=== PATIENT | female | born 1925 | race Caucasian/White ===

== ENCOUNTER 2016-07-03 16:47 | Inpatient (IN) | payer MEDICARE, OTHER ==
[2016-07-03 17:45] LABS: Hematocrit 39 % (35-47); Mean Corpuscular HGB Conc 33 g/dl (31-36); Mean Corpuscular Hemoglobin 31 pg (27-31); Mean Corpuscular Volume 93 fL (80-97); Mean Platelet Volume 8 um3 (7.4-10.4); Red Blood Count 4.26 10^6/ul (4.0-5.4); Red Cell Distribution Width 15 % (10.5-15); White Blood Count 6.7 10^3/ul (3.5-10.8)
[2016-07-03 17:55] LABS: Troponin I 0.01 ng/mL (<0.04)
[2016-07-03 17:56] LABS: Albumin 3.7 g/dL (3.2-5.2); BUN/Creatinine Ratio 40.4 (8-20); Calcium 9.3 mg/dL (8.6-10.3); EGFR African American 128.4 (>60); EGFR Non-African American 99.9 (>60); Globulin 2.6 g/dL (2-4); Potassium 4.2 mmol/L (3.5-5.0); Total Bilirubin 0.6 mg/dL (0.2-1.0); Total Protein 6.3 g/dL (6.4-8.9)
--- NOTE | 2016-07-03 18:38 | RAD ---
INDICATION: Difficulty breathing COMPARISON: Similar chest x-ray dated April 17, 2015 TECHNIQUE: Single AP portable view of the chest was obtained. FINDINGS: Image quality is compromised due to the relative inferiority of a portable chest x-ray. Similar the previous chest x-ray there is mild cardiomegaly. There is faint atherosclerotic calcification at the arch of the aorta. The lungs are grossly clear. There is no evidence of a large pleural effusion. The patient appears to have undergone at least 2 levels of vertebroplasty at the lower thoracic spine. IMPRESSION: No radiographic evidence for acute cardiopulmonary abnormality on this portable chest x-ray.
[2016-07-03 19:16] LABS: Urine Bacteria 1+ (Absent); Urine Bilirubin Negative (Negative); Urine Glucose Negative (Negative); Urine Nitrite Negative (Negative)
[2016-07-03] MEDS ORDERED: cefTRIAXone(*) 1 GM in NS 0.9% 50 ML* 50 ML IVPB ONE (19:23)
[2016-07-03] MEDS ORDERED: GuaiFENesin DM* 5 ML UDC PO PRN (20:16)
[2016-07-03] MEDS ORDERED: Albuterol 2.5 MG/3 ML NEB.SOL* (0.083%) INH PRN (20:19)
[2016-07-03] MEDS ORDERED: Acetaminophen TAB* 325 MG PO PRN (20:19)
[2016-07-03] MEDS ORDERED: Ondansetron INJ* 2 MG/ML VIAL IV PRN (20:21)
--- NOTE | 2016-07-03 20:35 | HP ---
H&P (Free Text) History and Physical: PCP: Freda Morrell MD Date/Time of Evaluation: 07/03/20162004 CC: lethargy, cough HPI: Mrs Anderson is an 89YO female HX advanced dementia who live at home with 24h care. She is brought in by her daughter for wet cough of 1week duration associated with increasing lethargy. PO intake has been decreased. There is no report of F/C, N/V/D, chest/abdominal pain, headache, focal W/N/T, change in bowel/bladder, or other issues. Evaluation is notable for a UTI. Discussion with the family regarding returning home on oral ABX vs 24h observation with gentle IVFs was had. They felt more comfortable with observation. PMedHx AFIB COPD lymphoma hypothyroidism polymyalgia rheumatica advanced dementia osteoporosis OA Ambulatory Orders fentaNYL PATCH 75 MCG/HR* [Duragesic PATCH 75 Mcg/Hr*] 75 mcg TRANSDERM Q72H Dextromethorphan-Guaifenesin [Tussin Dm] 10 ml PO Q4HR PRN 07/03/16 LORazepam TAB(*) [Ativan 0.5 MG TAB (*)] 0.5 mg PO BID 07/03/16 LoraTADine TAB(NF) [Claritin 10 MG TAB(NF)] 10 mg PO DAILY 07/03/16 Morphine Sulfate 100mg/5ml 0.5 ml PO Q2HR PRN 07/03/16 Sennosides-Docusate Sodium [Senna-S 8.6-50 mg] 1 tab PO QAM 07/03/16 Sotalol TAB* [Betapace 80 MG TAB*] 60 mg PO BID 07/03/16 Allergies Penicillins Allergy (Unknown, Verified 12/04/13 10:41) Hives PSurgHx cholecystectomy vertebroplasty appendectomy B tubal ligation SocHx: former smoker, no alcohol or recreational drugs; lives with 24h home health aide care; DNR/I code status FamHx: Mother: gastric CA; Father: COPD ROS: as above, otherwise reviewed and all were negative Constitutional: NAD, normally developed, obese elderly white female vitals: Vital Signs Temp 36.6 C 07/03/16 16:54 Pulse 60 07/03/16 18:59 Resp 12 07/03/16 16:54 BP 109/50 07/03/16 18:30 Pulse Ox 98 07/03/16 18:59 Intake & Output 07/02/16 07/03/16 07/03/16 23:59 11:59 23:59 Weight 81.647 kg HEENM: atraumatic; sclera/conjunctiva: non-icteric/clear; hearing: clinically mildly decreased; oropharynx: clear, mucosa tacky Neck: soft tissue: no nuchal rigidity; thyroid: normal Pulmonary: scant B end-expiratory wheeze, fair aeration with poor inspiratory effort, no accessory muscle use CV: RR/RR, normal S1S2, no carotid bruit, no jugular venous distention, 2+ B DP/ PT, no edema Abdominal: soft, non-distended, non-tender, no rebound/guarding/rigidity, normoactive bowel sounds, no hepatosplenomegaly or masses, no costovertebral angle tenderness Musculoskeletal: general: grossly intact; gait: too weak to ambulate Integumental: normal appearance and texture of exposed skin Psychiatric orientation: AA&disoriented affect: calm mood: belligerent eye contact: poor content: unreliable memory: markedly limited responses: slowed, often ignores, when asked how she feels replies, "fine until you came in" insight: poor to absent Testing: Lab Results 07/03/16 07/03/16 07/03/16 Range/Units 17:20 17:28 17:28 WBC 6.7 (3.5-10.8) 10^3/ul RBC 4.26 (4.0-5.4) 10^6/ul Hgb 13.0 (12.0-16.0) g/dl Hct 39 (35-47) % MCV 93 (80-97) fL MCH 31 (27-31) pg MCHC 33 (31-36) g/dl RDW 15 (10.5-15) % Plt Count 136 L (150-450) 10^3/ul MPV 8 (7.4-10.4) um3 Neut % (Auto) 58.8 (38-83) % Lymph % (Auto) 26.0 (25-47) % Alexander % (Auto) 11.1 H (1-9) % Eos % (Auto) 3.4 (0-6) % Baso % (Auto) 0.7 (0-2) % Absolute Neuts (auto) 3.9 (1.5-7.7) 10^3/ul Absolute Lymphs (auto) 1.7 (1.0-4.8) 10^3/ul Absolute Monos (auto) 0.7 (0-0.8) 10^3/ul Absolute Eos (auto) 0.2 (0-0.6) 10^3/ul Absolute Basos (auto) 0 (0-0.2) 10^3/ul Absolute Nucleated RBC 0.01 10^3/ul Nucleated RBC % 0.1 Sodium 138 (133-145) mmol/L Potassium 4.2 (3.5-5.0) mmol/L Chloride 101 (101-111) mmol/L Carbon Dioxide 32 (22-32) mmol/L Anion Gap 5 (2-11) mmol/L BUN 23 (6-24) mg/dL Creatinine 0.57 (0.51-0.95) mg/dL Est GFR ( Amer) 128.4 (>60) Est GFR (Non-Af Amer) 99.9 (>60) BUN/Creatinine Ratio 40.4 H (8-20) Glucose 92 (70-100) mg/dL Lactic Acid (0.5-2.0) mmol/L Calcium 9.3 (8.6-10.3) mg/dL Total Bilirubin 0.60 (0.2-1.0) mg/dL AST 15 (13-39) U/L ALT 7 (7-52) U/L Alkaline Phosphatase 66 (34-104) U/L Troponin I 0.01 (<0.04) ng/mL Total Protein 6.3 L (6.4-8.9) g/dL Albumin 3.7 (3.2-5.2) g/dL Globulin 2.6 (2-4) g/dL Albumin/Globulin Ratio 1.4 (1-3) Urine Color [place] Urine Appearance Cloudy Urine pH 5.0 (5-9) Ur Specific [place] 1.023 (1.010-1.030) Urine Protein 1+(30 mg/dl) H (Negative) Urine Ketones Negative (Negative) Urine Blood 3+ H (Negative) Urine Nitrate Negative (Negative) Urine Bilirubin Negative (Negative) Urine Urobilinogen Negative (Negative) Ur Leukocyte Esterase 3+ H (Negative) Urine WBC (Auto) 3+(>20/hpf) H (Absent) Urine RBC (Auto) 3+(>10/hpf) H (Absent) Ur Squamous Epith Cells Present H (Absent) Calcium Oxalate Crystal Present H (Absent) Urine Bacteria 1+ H (Absent) Urine Glucose Negative (Negative) Urine Ascorbic Acid * H (Negative) 07/03/16 Range/Units 17:28 WBC (3.5-10.8) 10^3/ul RBC (4.0-5.4) 10^6/ul Hgb (12.0-16.0) g/dl Hct (35-47) % MCV (80-97) fL MCH (27-31) pg MCHC (31-36) g/dl RDW (10.5-15) % Plt Count (150-450) 10^3/ul MPV (7.4-10.4) um3 Neut % (Auto) (38-83) % Lymph % (Auto) (25-47) % Alexander % (Auto) (1-9) % Eos % (Auto) (0-6) % Baso % (Auto) (0-2) % Absolute Neuts (auto) (1.5-7.7) 10^3/ul Absolute Lymphs (auto) (1.0-4.8) 10^3/ul Absolute Monos (auto) (0-0.8) 10^3/ul Absolute Eos (auto) (0-0.6) 10^3/ul Absolute Basos (auto) (0-0.2) 10^3/ul Absolute Nucleated RBC 10^3/ul Nucleated RBC % Sodium (133-145) mmol/L Potassium (3.5-5.0) mmol/L Chloride (101-111) mmol/L Carbon Dioxide (22-32) mmol/L Anion Gap (2-11) mmol/L BUN (6-24) mg/dL Creatinine (0.51-0.95) mg/dL Est GFR ( Amer) (>60) Est GFR (Non-Af Amer) (>60) BUN/Creatinine Ratio (8-20) Glucose (70-100) mg/dL Lactic Acid 0.9 (0.5-2.0) mmol/L Calcium (8.6-10.3) mg/dL Total Bilirubin (0.2-1.0) mg/dL AST (13-39) U/L ALT (7-52) U/L Alkaline Phosphatase (34-104) U/L Troponin I (<0.04) ng/mL Total Protein (6.4-8.9) g/dL Albumin (3.2-5.2) g/dL Globulin (2-4) g/dL Albumin/Globulin Ratio (1-3) Urine Color Urine Appearance Urine pH (5-9) Ur Specific [place] (1.010-1.030) Urine Protein (Negative) Urine Ketones (Negative) Urine Blood (Negative) Urine Nitrate (Negative) Urine Bilirubin (Negative) Urine Urobilinogen (Negative) Ur Leukocyte Esterase (Negative) Urine WBC (Auto) (Absent) Urine RBC (Auto) (Absent) Ur Squamous Epith Cells (Absent) Calcium Oxalate Crystal (Absent) Urine Bacteria (Absent) Urine Glucose (Negative) Urine Ascorbic Acid (Negative) ECG, personally reviewed: NSR rate 64, no ischemia CXR, personally reviewed: IMPRESSION: No radiographic evidence for acute cardiopulmonary abnormality on this portable chest x-ray. Impression: 89F HX advanced dementia & COPD presents with lethargy and UTI w/ wet cough & CXR negative for pneumonia DIAGNOSIS & PLAN Primary UTI w/ 2nd lethargy : IV ceftriaxone given in ED : start PO sulfamethoxazole/trimethoprim DS BID : gentle IVFs : recheck CBC & CXR in AM : hold lorazepam and morphine while lethargic : continue fentanyl patch for pain : supportive care COPD, in mild exacerbation : albuterol nebs : mometasone/formoterol : tiotropium : PO prednisone : supplemental oxygen Secondary AFIB : currently sinus rhythm lymphoma : no evidence of disease hypothyroidism : not currently on medication : check TSH polymyalgia rheumatica : no acute issues advanced dementia : no acute issues Admission Rational: observation for initiation of ABX for UTI in an advanced elderly patient at risk of sudden terminal decompensation DVTp: heparin SQ & SCDs Code Status: DNR/I, MOLST filled out HCP: Wilver hodge & Jackie regalado
[2016-07-03] MEDS: NS 0.9% 1000 ML* 1,000 ML IV SCH (20:47)
[2016-07-03] MEDS ORDERED: Ciprofloxacin TAB* 500 MG PO SCH (21:00)
[2016-07-03] MEDS ORDERED: fentaNYL PATCH 75 MCG/HR* 75 MCG TRANSDERM SCH (21:00)
[2016-07-03] MEDS: Sotalol TAB* 80 MG PO SCH (23:47)
[2016-07-03] MEDS: Sulfamethox/Trimethoprim DS 800/160* TAB PO SCH (23:47)
[2016-07-03] MEDS: guaiFENesin ER TAB 600 MG PO SCH (23:47)
[2016-07-04] MEDS: Heparin VIAL(*) 5000 UNITS/ML VIAL (FIVE THOUSAND) SUBCUT SCH ×3 (06:06→22:24)
[2016-07-04] MEDS: Omeprazole CAP* 20 MG PO SCH (06:06)
[2016-07-04] MEDS: predniSONE TAB* 20 MG PO SCH ×2 (06:11→08:26)
[2016-07-04 06:57] LABS: Hematocrit 37 % (35-47); Mean Corpuscular HGB Conc 33 g/dl (31-36); Mean Corpuscular Hemoglobin 31 pg (27-31); Mean Corpuscular Volume 93 fL (80-97); Mean Platelet Volume 8 um3 (7.4-10.4); Red Blood Count 3.92 10^6/ul (4.0-5.4); Red Cell Distribution Width 14 % (10.5-15); White Blood Count 5.8 10^3/ul (3.5-10.8)
[2016-07-04] MEDS: fentaNYL Patch Check Q Shift 1 NOTE SCH ×2 (06:59→19:03)
[2016-07-04 07:49] LABS: TSH (Thyroid Stimulating Horm) 10.85 mcIU/mL (0.34-5.60)
--- NOTE | 2016-07-04 07:52 | PN ---
Subjective Date of Service: 07/04/16 Interval History: Patient seen and examined at bedside. She awakes to verbal stimuli. She is alert , knows she is in a hospital. She states, "I don't know why I'm here." When asked about her symptoms, she states she has had a cough "off and on for a couple of weeks." Denies SOB or chest pain, fever/chills, abd pain, n/v. States her right hip hurts from the bed. Patient able to communicate she needs to use the commode. Was able to push herself up on the edge of the bed and pivot with 1 assist to commode. Able to make needs known. Family History: Unchanged from Admission Social History: Unchanged from Admission Past Medical History: Unchanged from Admission Objective Active Medications: Acetaminophen (Tylenol Tab*) 650 mg PO Q6H PRN PRN Reason: FEVER/PAIN Albuterol (Ventolin 2.5 Mg/3 Ml Neb.Mahnaz*) 2.5 mg INH Q2H PRN PRN Reason: SOB/WHEEZING Cetirizine HCl (Zyrtec*) 10 mg PO QPM [facility] Device (Tiotropium Inhaler Device*) 0 each .SEE ORDER ONCE ONE Stop: 07/04/16 09:01 Docusate Sodium (Colace Cap*) 100 mg PO QAM [facility] Fentanyl (Duragesic Patch 75 Mcg/Hr*) 75 mcg TRANSDERM Q72H [facility] Guaifenesin (Mucinex*) 1,200 mg PO BID [facility] Last Admin: 07/03/16 23:47 Dose: 1,200 mg Heparin Sodium (Porcine) (Heparin Vial(*)) 5,000 units SUBCUT Q8HR [facility] Last Admin: 07/04/16 06:06 Dose: 5,000 units Sodium Chloride (Ns 0.9% 1000 Ml*) 1,000 mls @ 75 mls/hr IV PER RATE [facility] Last Admin: 07/03/16 20:47 Dose: 75 mls/hr Mometasone Furoate/Formoterol Fumar (Dulera 200/5 Mdi*) 2 puff INH BID [facility] Omeprazole (Prilosec Cap*) 20 mg PO DAILY@0600 [facility] Last Admin: 07/04/16 06:06 Dose: 20 mg Ondansetron HCl (Zofran Inj*) 4 mg IV Q6H PRN PRN Reason: NAUSEA Pharmacy Profile Note (Fentanyl Patch Check Q Shift) 1 note N/A 0700,1900 [facility] Last Admin: 07/04/16 06:59 Dose: 1 note Prednisone (Deltasone Tab*) 40 mg PO DAILY [facility] Stop: 07/05/16 09:01 Last Admin: 07/04/16 06:11 Dose: 40 mg Senna (Senokot Tab*) 1 tab PO QAM [facility] Sotalol HCl (Betapace Tab*) 60 mg PO BID [facility] Last Admin: 07/03/16 23:47 Dose: 60 mg Tiotropium [place] (Spiriva Cap.Inh*) 1 cap INH DAILY [facility] Trimethoprim/Sulfamethoxazole (Bactrim Ds 800/160 Tab*) 1 tab PO BID [facility] Last Admin: 07/03/16 23:47 Dose: 1 tab Vital Signs 07/03/16 07/03/16 07/03/16 20:30 20:55 21:00 Temperature 97.5 F Pulse Rate 59 60 58 Respiratory 16 Rate Blood Pressure 120/52 104/47 104/47 (mmHg) O2 Sat by Pulse 98 97 97 Oximetry 07/03/16 07/03/16 07/03/16 21:47 21:52 23:58 Temperature 98.0 F 98.0 F 97.6 F Pulse Rate 65 65 71 Respiratory 18 18 20 Rate Blood Pressure 154/54 154/54 130/59 (mmHg) O2 Sat by Pulse 97 97 98 Oximetry 07/04/16 03:37 Temperature 98.0 F Pulse Rate 56 Respiratory 20 Rate Blood Pressure 122/47 (mmHg) O2 Sat by Pulse 98 Oximetry Oxygen Devices in Use Now: Nasal Cannula - 3Lnc Appearance: Elderly female, lying in bed, NAD Eyes: PERRLA Ears/Nose/Mouth/Throat: Mucous Membranes Moist Neck: NL Appearance and Movements; NL JVP Respiratory: Symmetrical Chest Expansion and Respiratory Effort, - - fair aeration, prolonged expiratory phase, exp wheezing, scattered rhonchi Cardiovascular: NL Sounds; No Murmurs; No JVD, RRR Abdominal: NL Sounds; No Tenderness; No Distention Extremities: No Edema Neurological: - - Alert, oriented to self and place Lines/Tubes/Other Access: Clean, Dry and Intact Peripheral IV Nutrition: Taking PO's Result Diagrams: 07/04/16 06:29 07/03/16 17:28 Assess/Plan/Problems-Billing Assessment: Ms. Anderson is an 89 yo female with a PMH of afib, COPD, lymphoma, hypothyroidism, PMR, advanced dementia, and OA who presented on 07/03/16 with concern for lethargy and cough; patient found to have UTI and concern for mild COPD exacerbation. - Patient Problems (1) UTI (urinary tract infection) Comment: With accompanying lethargy at home. No leukocytosis or fever. Received ceftriaxone in ED, started on Bactrim DS last evening. Continue IVF and supportive care. Home morphine and lorazepam on hold for lethargy, Fentanyl patch in place. (2) COPD (chronic obstructive pulmonary disease) Code(s): J44.9 - CHRONIC OBSTRUCTIVE PULMONARY DISEASE, UNSPECIFIED Comment: Presented with cough, lethargy. Suspect mild exacerbation. Continue prednisone, Dulera, Spiriva, albuterol nebs Supplemental O2 (3) Afib Code(s): I48.91 - UNSPECIFIED ATRIAL FIBRILLATION Comment: Currently in SR Continue sotalol. (4) Dementia Code(s): F03.90 - UNSPECIFIED DEMENTIA WITHOUT BEHAVIORAL DISTURBANCE Comment : Continue supportive care. (5) Hypothyroid Code(s): E03.9 - HYPOTHYROIDISM, UNSPECIFIED Comment: Continue levothyroxine. 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 Receiving 5 day course here for COPD exacerbation. Continue to monitor. (8) DVT prophylaxis Comment: SQ heparin SCDs Status and Disposition: OBV admit. Plan for d/c to home when medically stable.
[2016-07-04] MEDS: Mometasone/Formoter 200/5 MDI INH SCH ×2 (07:59→19:01)
[2016-07-04] MEDS: Tiotropium CAP.INH* CAP.INH/18 MCG INH SCH (07:59)
--- NOTE | 2016-07-04 08:06 | RAD ---
HISTORY: Cough, hypoxia COMPARISONS: July 03, 2016 at 5:15 PM VIEWS:1: Single frontal portable view of the chest at 7:08 AM FINDINGS: LINES AND TUBES: None. CARDIOMEDIASTINAL SILHOUETTE: The cardiomediastinal silhouette is stable. PLEURA: The costophrenic angles are sharp. No pleural abnormalities are noted. LUNG PARENCHYMA: There is hyperinflation. ABDOMEN: The upper abdomen is clear. There is no subphrenic gas. BONES AND SOFT TISSUES: There is remote posttraumatic deformity to the left hemithorax. The patient appears to be status post percutaneous vertebral augmentation of the midthoracic spine. IMPRESSION: HYPERINFLATION. NO ACTIVE CARDIOPULMONARY DISEASE.
[2016-07-04] MEDS ORDERED: Albuterol 2.5 MG/3 ML NEB.SOL* (0.083%) INH ONE (08:25)
[2016-07-04] MEDS: guaiFENesin ER TAB 600 MG PO SCH ×2 (08:26→22:25)
[2016-07-04] MEDS: Sulfamethox/Trimethoprim DS 800/160* TAB PO SCH ×2 (08:26→22:25)
[2016-07-04] MEDS: Senna TAB PO SCH (08:26)
[2016-07-04] MEDS: Docusate CAP* 100 MG PO SCH (08:27)
[2016-07-04] MEDS: NS 0.9% 1000 ML* 1,000 ML IV SCH ×2 (08:28→22:23)
[2016-07-04 08:46] LABS: Free T3 2.3 pg/mL (2.5-3.9)
[2016-07-04] MEDS: Sotalol TAB* 80 MG PO SCH ×2 (08:46→22:24)
[2016-07-04 08:47] LABS: Free T4 0.59 ng/dL (0.61-1.12)
[2016-07-04] MEDS ORDERED: Spiriva Inhaler DEVICE* 1 EACH DEVICE ONE (09:00)
[2016-07-04] MEDS ORDERED: Senna/Docusate (NF) TAB PO SCH (09:00)
[2016-07-04] MEDS ORDERED: Morphine ORAL.SOLN 10 mg* 2 MG/ML UDC 5 ml PO PRN (12:11)
[2016-07-04] MEDS ORDERED: LORazepam TAB(*) 0.5 MG PO PRN (12:14)
[2016-07-04] MEDS ORDERED: Levothyroxine TAB* 25 MCG TAB PO ONE (13:08)
[2016-07-04] MEDS: Albuterol 2.5 MG/3 ML NEB.SOL* (0.083%) INH SCH ×3 (14:49→23:56)
[2016-07-04] MEDS ORDERED: Cetirizine* 10 MG TAB PO SCH (18:00)
[2016-07-05] MEDS: Albuterol 2.5 MG/3 ML NEB.SOL* (0.083%) INH SCH ×2 (03:56→07:54)
[2016-07-05] MEDS: Omeprazole CAP* 20 MG PO SCH (05:08)
[2016-07-05] MEDS: Heparin VIAL(*) 5000 UNITS/ML VIAL (FIVE THOUSAND) SUBCUT SCH (05:08)
[2016-07-05] MEDS ORDERED: Levothyroxine TAB* 25 MCG TAB PO SCH (06:00)
[2016-07-05] MEDS: fentaNYL Patch Check Q Shift 1 NOTE SCH (06:48)
[2016-07-05] MEDS: Mometasone/Formoter 200/5 MDI INH SCH (07:55)
[2016-07-05] MEDS: Tiotropium CAP.INH* CAP.INH/18 MCG INH SCH (07:55)
[2016-07-05 08:20] VITALS: BP 116/76
[2016-07-05] MEDS: Sotalol TAB* 80 MG PO SCH (08:26)
[2016-07-05] MEDS: guaiFENesin ER TAB 600 MG PO SCH (08:27)
[2016-07-05] MEDS: predniSONE TAB* 20 MG PO SCH (08:27)
[2016-07-05] MEDS: Docusate CAP* 100 MG PO SCH (08:28)
[2016-07-05] MEDS: Sulfamethox/Trimethoprim DS 800/160* TAB PO SCH (08:28)
[2016-07-05] MEDS: Senna TAB PO SCH (08:28)
[2016-07-05] MEDS ORDERED: Albuterol/Ipratropium NEB.SOL* Albuterol 2.5 MG/Ipratropium 0.5 MG 3 ML INH SCH (13:00)
--- NOTE | 2016-07-06 02:07 | DS ---
DISCHARGE SUMMARY: DATE OF ADMISSION: 07/04/16 DATE OF DISCHARGE: 07/05/16 PRIMARY CARE PHYSICIAN: Ever Morrell MD DISCHARGE DIAGNOSES: 1. Chronic obstructive pulmonary disease exacerbation. 2. Urinary tract infection. 3. Lethargy and increased confusion, most likely due to dehydration. SECONDARY DIAGNOSES: 1. History of chronic atrial fibrillation. 2. History of chronic obstructive pulmonary disease. 3. Lymphoma. 4. Hypothyroidism. 5. Polymyalgia rheumatica. 6. History of dementia. 7. Osteoporosis. 8. Osteoarthritis. MEDICATIONS AT DISCHARGE: Include: 1. Robitussin 10 mL every 4 hours on a p.r.n. basis. 2. Morphine sulfate 0.5 mL every 2 hours p.r.n. 3. Ativan 0.5 mg b.i.d. p.r.n. 4. Levothyroxine 25 mcg daily. 5. Claritin 10 mg daily. 6. Dulera 200/5 mcg 2 puffs inhalation b.i.d. 7. Prednisone 40 mg daily for a total of 4 days. 8. Senna 1 tablet daily. 9. Sotalol 60 mg b.i.d. 10. Bactrim 1 tablet p.o. b.i.d. for a total of 5 days. 11. Spiriva 1 inhalation daily. 12. Fentanyl patch 75 mcg transdermally every 74 hours. 13. Mucinex ER 1200 mg b.i.d. for 7 days. DIAGNOSTIC STUDIES/LAB DATA: Laboratory studies performed during the hospital stay include: On 07/04/16: White blood cell count of 5.8, hemoglobin of 12.0, hematocrit of 37, and platelets of 111. The patient's TSH was noted to be 10.8, free T4 0.5, and free T3 2.3. Portable chest x-ray obtained on admission, impression: "No radiographic evidence for acute cardiopulmonary abnormality on this portable chest x-ray." Portable chest x-ray obtained on 07/04/16, impression: "Hyperinflation. No active cardiopulmonary disease." Urine culture showed Vanesa albicans up to 10,000 and "normal jaden" up to 50, 000. HOSPITALIZATION COURSE: Tami Anedrson is an 89-year-old female with history of atrial fibrillation and dementia with 24x7 care at home and uses oxygen at home who presented to the hospital with increased lethargy, cough, and poor appetite. The patient was diagnosed with mild COPD exacerbation, most likely UTI, dehydration, and confusion due to the above mentioned. She was admitted to the hospital, placed on intravenous fluids. She did very well. She was started on prednisone as well as inhalers for mild COPD exacerbation. She required continuously 2 L of oxygen at discharge. Please also note that the patient has a history of hypothyroidism, but the medications given by the family at admission did not show thyroid replacement therapy. TSH was mildly elevated at 10 with low free T4 and free T3. Due to that low-dose Synthroid was started. It is recommended for the patient to have a followup TSH in 4 to 6 week to titrate the dose of Synthroid. The patient was diagnosed with most likely urinary tract infection, but actually microbiology at the time of discharge showed "normal jaden." Nevertheless, the patient is recommended to continue her Bactrim for the next 5 days to complete the course of treatment. PHYSICAL EXAMINATION: At the time of discharge, blood pressure of 116/76, heart rate of 70 and regular, respiratory rate 17, oxygen saturation 97% on 2 L of oxygen via nasal cannula, and temperature 98.2. General: The patient is a very pleasant, 89-year-old female who is in no acute distress. The patient is aware that she is in the hospital, not aware of her age. HEENT: Head is atraumatic, normocephalic. Eyes: Pupils are equal and reactive to light and accommodation. Oropharynx clear. Mucosa moist. Neck: Supple. No JVD. No bruits bilaterally. Cardiovascular: Regular rate and rhythm. No murmur. Respiratory: Faint crackles at bilateral bases, otherwise clear. Abdomen: Soft, nontender. Bowel sounds present in all 4 quadrants. Extremities: There is trace bilateral ankle edema. Pulses present 2+ bilaterally. No clubbing or cyanosis. Neuro Evaluation: Speech clear. Cranial nerves II through XII grossly intact. Motor strength is 5/5 bilaterally. The patient is going to be discharged home to continue her 24-hour a day home care. The patient also was started on inhaler for COPD. She is recommended to follow up with her primary care provider, Dr. Morrell, in approximately 4 to 7 days. Please note, this is a short summary of patient's hospital stay. Please refer to further medical records for details. TIME SPENT: Approximately 45 minutes was spent on patient's discharge. CC: Dr. Morrell* [id number]/CPS #: [id number]
== END 2016-07-05 14:15 | disposition home or self-care (01) | DRG 690 ==
LOC: ED 16:47 → MED 20:16 → OBSVTOIN 07-04 13:26
PROVIDERS: ADMIT Hospitalist; ATTEND Internal Medicine
DX: N39.0 Urinary tract infection, site not specified (principal); C83.30 Diffuse large B-cell lymphoma, unspecified site; J44.1 Chronic obstructive pulmonary disease with (acute) exacerbation; E86.0 Dehydration; I48.2 Chronic atrial fibrillation; F03.90 Unspecified dementia, unspecified severity, without behavioral disturbance, psychotic disturbance, mood disturbance, and anxiety; E03.9 Hypothyroidism, unspecified; M19.90 Unspecified osteoarthritis, unspecified site; E66.9 Obesity, unspecified; Z66 Do not resuscitate; M35.3 Polymyalgia rheumatica; M81.0 Age-related osteoporosis without current pathological fracture; Z88.0 Allergy status to penicillin; Z98.51 Tubal ligation status; Z87.891 Personal history of nicotine dependence; Z80.0 Family history of malignant neoplasm of digestive organs; Z82.5 Family history of asthma and other chronic lower respiratory diseases; Z68.22 Body mass index [BMI] 22.0-22.9, adult
CPT/HCPCS: 36415; 71010; 80053; 81003; 81015; 83605; 84439; 84443; 84481; 84484; 85025; 85027; 87040; 87086; 87106; 93005; 94640; 94760; A9270-GY; G0378; J0696; J1644; J7512